=== PATIENT | female | born 1960 | race Caucasian/White ===

== ENCOUNTER 2017-07-10 08:45 | Day surgery (SDC) | payer BC ==
[2017-07-03 16:57] VITALS: BMI 29.5
--- NOTE | 2017-07-09 15:38 | HP ---
HISTORY AND PHYSICAL Surgery is 07/10/2017. Nae Clark is a 56-year-old patient seen with left shoulder adhesive capsulitis with history of previous arthroscopy. We discussed options. The patient elected to proceed with left shoulder manipulation under anesthesia with steroid injection. Consent regarding the procedure was obtained. PAST MEDICAL HISTORY: Hypertension, hyperlipidemia. PAST SURGICAL HISTORY: Noncontributory. DAILY MEDICATIONS: Pravastatin, Xanax. ALLERGIES: PENICILLIN. SOCIAL HISTORY: Patient smokes 1 pack cigarettes daily. PHYSICAL EXAMINATION: Evaluation left shoulder: Flexion 90 degrees, abduction is 30 degrees, external rotation is 10 degrees with weakness. Tenderness along the anterior lateral acromion rotator cuff insertion site. Impingement sign positive 90 degrees. Distal neurovascular exam intact. RADIOGRAPHS: Left shoulder radiographs revealed a type 2 anterior acromion and cystic changes of the tuberosity. An MRI of left shoulder reveal tendinitis and capsular thickening. IMPRESSION: Left shoulder adhesive capsulitis. PLAN: Manipulation under anesthesia left shoulder with steroid injection. MMODL / IJN: [id number] /
[~2017-07-10 08:45] MED LIST: CLINDAMYCIN 900 MG in DEXTROSE 5% IN WATER 50 ML IVPB ONE; LACTATED RINGERS 1,000 ML IV ONE; LIDOCAINE 1% 20 ML VIAL (10MG/ML) FOR IV START INTRADERMA PRN
[2017-07-10 09:19] VITALS: TEMP 98.6
[2017-07-10] MEDS ORDERED: ONDANSETRON 4 MG/2 ML VIAL IVP ONE ×2 (09:22→10:33)
[2017-07-10] MEDS ORDERED: DEXAMETHASONE SOD PHOSPHATE 10 MG/ML 1 ML VIAL IV ONE (09:22)
[2017-07-10 09:50] VITALS: RESP 16
[2017-07-10] MEDS ORDERED: PROPOFOL 10 MG/ML 20 ML VIAL IV ONE (09:57)
[2017-07-10] MEDS ORDERED: fentaNYL (PF) 50 MCG/ML 2 ML AMP ONE (09:57)
[2017-07-10] MEDS ORDERED: MIDAZOLAM 2 MG/2 ML VIAL ONE (09:57)
[2017-07-10] MEDS ORDERED: BUPIVACAINE (PF) 0.25% 30 ML VIAL MISCELLANE ONE ×2 (10:01)
[2017-07-10] MEDS ORDERED: TRIAMCINOLONE ACETONIDE 40 MG/ML 1 ML VIAL IM ONE (10:01)
--- NOTE | 2017-07-10 10:12 | P.OP ---
Date of Procedure: 07/10/17 Preoperative Diagnosis: Left shoulder adhesive capsulitis Postoperative Diagnosis: Left shoulder adhesive capsulitis Procedure(s) Performed: Manipulation under anesthesia left shoulder with steroid injection Implants: None Anesthesia: MAC Surgeon: Etienne Sen Estimated Blood Loss (ml): 0 Pathology: none sent Condition: stable Disposition: PACU Indications for Procedure: 56-year-old patient seen with symptomatic left shoulder adhesive capsulitis. After treatment options were discussed, she elected to proceed with manipulation under anesthesia with steroid injection. Operative Findings: See description of procedure Description of Procedure: Patient was taken to monitored anesthesia area. The patient underwent IV sedation by department of anesthesia. Once sufficient anesthesia was noted a manipulation of the left shoulder was performed achieving near full range of motion. The anterior aspect of the shoulder was now prepped and draped in the normal sterile orthopedic fashion. A solution 1 mL Depo-Medrol and 4 mL quarter percent plain Marcaine were injected into the glenohumeral joint. A sterile Band-Aid was applied. The patient was awakened having tolerated the procedure well.
[2017-07-10] MEDS ORDERED: HYDROmorphone 1 MG/ML 1 ML SYRINGE IVP ONE ×4 (10:20→10:39)
[2017-07-10] MEDS ORDERED: MEPERIDINE 50 MG/ML SYRINGE IVP ONE (10:46)
[2017-07-10] MEDS ORDERED: KETOROLAC 30 MG/ML 1 ML VIAL IVP ONE (11:04)
[2017-07-10] MEDS ORDERED: PROMETHAZINE INJ 25 MG/ML 1 ML VIAL IVPB ONE (11:07)
[2017-07-10] MEDS ORDERED: LACTATED RINGERS 1,000 ML IV ONE (11:10)
[2017-07-10] MEDS ORDERED: HYDROcodone/APAP 5-325MG 1 EACH TAB PO ONE (12:58)
[2017-07-10 13:34] VITALS: BP 113/78; PULSE 63
== END 2017-07-10 14:00 | disposition home or self-care (01) ==
LOC: OR 08:45
PROVIDERS: ATTEND Orthopaedic Surgery
DX: M75.02 Adhesive capsulitis of left shoulder (principal); I10 Essential (primary) hypertension; E78.5 Hyperlipidemia, unspecified; E07.9 Disorder of thyroid, unspecified; Z88.0 Allergy status to penicillin; F17.210 Nicotine dependence, cigarettes, uncomplicated; Z79.1 Long term (current) use of non-steroidal anti-inflammatories (NSAID); Z79.899 Other long term (current) drug therapy
CPT/HCPCS: 23700; J2250; J1100; J3301; J2550; J2175; J2405; J3010; J1885; J1170; J2704

== ENCOUNTER → 2018-06-21 | Outpatient (CLI) | payer BC ==
--- NOTE | 2018-06-22 13:13 | US ---
EXAMINATION TYPE: US thyroid st tissue head/neck DATE OF EXAM: 06/21/2018 COMPARISON: NM Only CLINICAL HISTORY: E04.2 Multinodular goiter. Goiter, pt states known nodules and on thyroid meds x 40 yrs GLAND SIZE: Right Lobe: 4.3 x 1.9 x 1.9 cm Overall Parenchyma: heterogenous Left Lobe: 3.2 x 1.1 x 1.1 cm Overall Parenchyma: heterogeneous Isthmus Thickness: 0.2 cm NODULES RIGHT: # of nodules measured on right: 2 1. 2.4 X 1.3 x 1.7 cm isoechoic solid nodule at the mid pole with well-defined margins; . This nod ule is wider than tall and shows intranodular vascularity. Prior size: No prior 2. 1.3 X 0.8 x 1.3 cm hypoechoic solid nodule at the mid pole with well-defined margins; . This nod ule is wider than tall and shows intranodular vascularity. Left lobe, innumerable sub-centimeter nodules too numerous to count, largest nodule measured LEFT: # of nodules measured on left: 1 1. 0.7 X 0.4 x 0.6 cm hypoechoic solid nodule at the mid pole with well-defined margins; . This no dule is wider than tall and shows intranodular vascularity. Prior size: No prior Bilateral neck scanned, no evidence of lymphadenopathy. Nodules bilaterally, greater than 1 cm on ri ght, all sub-centimeter on left. IMPRESSION: 1. Multinodular goiter. 2. There are 2 nodules within the right lobe thyroid is larger than 1 cm.
== END ==
LOC: RADUSWWP 08:46
PROVIDERS: ATTEND Internal Medicine Endocrinology, Diabetes & Metabolism
DX: E04.2 Nontoxic multinodular goiter (principal)
CPT/HCPCS: 76536

== ENCOUNTER → 2018-07-10 | Outpatient (CLI) | payer BC ==
--- NOTE | 2018-07-10 13:52 | ECHOF ---
Referral Reason:R06.9 Other forms of dyspnea MEASUREMENTS -------- HEIGHT: 175.3 cm WEIGHT: 88.5 kg BP: RVIDd: 3.0 cm (< 3.3) IVSd: 0.9 cm (0.6 - 1.1) LVIDd: 4.1 cm (3.9 - 5.3) LVPWd: 1.0 cm (0.6 - 1.1) IVSs: 1.2 cm LVIDs: 2.9 cm LVPWs: 1.2 cm LAESV Index (A-L): 19.15 ml/m Ao Diam: 3.0 cm (2.0 - 3.7) AV Cusp: 1.6 cm (1.5 - 2.6) LA Diam: 3.2 cm (2.7 - 3.8) EPSS: 1.2 cm MV E Frandy: 0.66 m/s MV DecT: 241 ms MV A Frandy: 0.81 m/s MV E/A Ratio: 0.81 RAP: 5.00 mmHg RVSP: 20.96 mmHg MV EF SLOPE: 98.63 mm/s (70 - 150) MV EXCURSION: 1.76 cm (> 18.000) FINDINGS -------- Sinus rhythm. This was a technically adequate study. The left ventricular size is normal. Left ventricular wall thickness is normal. Overall left vent ricular systolic function is normal with, an EF between 55 - 60 %. The right ventricle is normal in size and function. Normal LA size by volume 22+/-6 ml/m2. The right atrium is normal in size. The aortic valve is trileaflet, and appears structurally normal. No aortic stenosis or regurgitation. The mitral valve is normal. Mild mitral regurgitation is present. Mild tricuspid regurgitation present. Right ventricular systolic pressure is normal at < 35 mmHg. Trace/mild (physiologic) pulmonic regurgitation. The aortic root size is normal. Normal inferior vena cava with normal inspiratory collapse consistent with estimated right atrial pre ssure of 5 mmHg. There is no pericardial effusion. CONCLUSIONS -------- 1. Sinus rhythm. 2. This was a technically adequate study. 3. The left ventricular size is normal. 4. Left ventricular wall thickness is normal. 5. Overall left ventricular systolic function is normal with, an EF between 55 - 60 %. 6. Normal LA size by volume 22+/-6 ml/m2. 7. The aortic valve is trileaflet, and appears structurally normal. No aortic stenosis or regurgitati on. 8. Mild mitral regurgitation is present. 9. Mild tricuspid regurgitation present. 10. Right ventricular systolic pressure is normal at < 35 mmHg. 11. Trace/mild (physiologic) pulmonic regurgitation. 12. The aortic root size is normal. 13. There is no pericardial effusion. RESAW FEEDER: Homar Wheat RDCS
== END ==
LOC: RADECHMAIN 11:15
PROVIDERS: ATTEND Internal Medicine
DX: I08.1 Rheumatic disorders of both mitral and tricuspid valves (principal); I37.1 Nonrheumatic pulmonary valve insufficiency
CPT/HCPCS: 93306

== ENCOUNTER → 2019-09-30 | Outpatient (CLI) | payer OTHER ==
--- NOTE | 2019-09-30 07:53 | MR ---
EXAMINATION TYPE: MR knee RT wo con DATE OF EXAM: 09/30/2019 COMPARISON: None HISTORY: Right knee pain TECHNIQUE: Multiplanar, multisequence imaging of the right knee is performed without IV contrast. FINDINGS: MEDIAL MENISCUS: Linear increased signal within the posterior horn of the medial meniscus extends to the articular surface. Abnormal signal is also noted within the posterior root anchor LATERAL MENISCUS: There is some increased signal within the lateral meniscus however no clear communi cation with the articular surface is identified CRUCIATE LIGAMENTS: The anterior and posterior cruciate ligaments are intact and unremarkable. COLLATERAL LIGAMENTS: The medial collateral ligament and lateral collateral ligament complex are inta ct and unremarkable. EXTENSOR MECHANISM: Visualized quadriceps and patellar tendons are intact. EFFUSION: Small suprapatellar joint effusion is noted. POPLITEAL CYST: No popliteal/zavaleta cyst. TRICOMPARTMENT SPACES: Maintained CARTILAGE: Grade 2 to grade III chondromalacia at the posterior patella, question some grade II chond romalacia in the lateral compartment BONE MARROW SIGNAL: No focal abnormal marrow signal is appreciated. OTHER: There is some subcutaneous edema present IMPRESSION: Tear of the posterior horn of the medial meniscus. Joint effusion. Osteoarthritis.
== END | disposition home or self-care (01) ==
LOC: RADMRIMAIN 06:20
PROVIDERS: ATTEND Orthopaedic Surgery
DX: S83.241A Other tear of medial meniscus, current injury, right knee, initial encounter (principal); M17.11 Unilateral primary osteoarthritis, right knee